=== PATIENT | female | born 1970 | race Caucasian/White ===

== ENCOUNTER 2017-05-02 10:18 | Emergency (ER) | payer BC, OTHER ==
[~2017-05-02] VITALS: Ht 160 cm; Wt 65.0 kg
[2017-05-02] MEDS ORDERED: NAPR500T3 PO ×2 (10:34→12:09)
--- NOTE | 2017-05-02 11:55 | REP ---
Left lower extremity Duplex Doppler venous ultrasound: Real time compression and duplex Doppler interrogation of the left lower extremity deep venous system is performed. The left common femoral, superficial femoral and popliteal veins are fully compressible with transducer pressure and demonstrate normal spontaneous and phasic flow, without evidence of deep venous thrombosis. Impression: No evidence of deep venous thrombosis of the left lower extremity femoral popliteal venous system. Incidental note is made of reflux in the central greater saphenous vein with a large venous varicosity in the proximal to mid thigh. Signed by David Felix MD 05/02/2017 11:47 A
[2017-05-02 12:14] VITALS: BP 121/71
== END 2017-05-02 12:16 | disposition home or self-care (01) ==
LOC: M ED 10:18
DX: I83.812 Varicose veins of left lower extremity with pain (principal); I34.1 Nonrheumatic mitral (valve) prolapse; K57.90 Diverticulosis of intestine, part unspecified, without perforation or abscess without bleeding; Z87.42 Personal history of other diseases of the female genital tract